=== PATIENT | male | born 1985 | race Caucasian/White ===

== ENCOUNTER 2020-12-12 14:51 | Emergency (ER) | payer BC ==
[~2020-12-12] VITALS: Ht 182.9 cm; Wt 109.1 kg
[2020-12-12 15:10] LABS: MEAN CELL VOLUME 88 fl (80.0-100.0); MEAN CORPUSCULAR HEMOGLOBIN 30 pg (27.0-31.0); MEAN CORPUSCULAR HGB CONC 34 g/dl (33.0-37.0); PLATELET COUNT 159 K/mm3 (130-400); RED BLOOD COUNT 5.95 M/mm3 (4.20-5.60); REDCELL DISTRIBUTION WIDTH-CV 12.4 % (11.5-14.5)
[2020-12-12 15:11] LABS: HEMATOCRIT 52.5 % (42.0-52.0)
[2020-12-12 15:22] LABS: ALBUMIN 4.9 gm/dL (3.5-5.0); CALCIUM 9.7 mg/dL (8.4-10.2); CREATININE, serum 1.24 (0.66-1.25); POTASSIUM 3.9 mmol/L (3.4-5.0); TOTAL PROTEIN 8.8 gm/dL (6.4-8.2)
[2020-12-12 15:33] LABS: BAND 23 % (0-10); EOSINOPHIL 2 % (0-4); LYMPHOCYTE 11 % (20.0-51.0); NEUTROPHILS 61 % (42.0-75.2); PLATELET ESTIMATE NORMAL (NORMAL)
[2020-12-12 16:24] VITALS: TEMP 99.3
[2020-12-12] MEDS ORDERED: FLAGYL500 MG PO (18:12)
[2020-12-12 18:44] VITALS: BP 152/92; PULSE 89
[2020-12-12 18:51] LABS: CLOSTRIDIUM DIFF A/B NEG; CLOSTRIDIUM DIFF A/B INTERP No C.diff present
== END 2020-12-12 18:44 | disposition home or self-care (01) ==
LOC: COL.ER 14:51
PROVIDERS: Nurse Practitioner Primary Care
DX: K52.9 Noninfective gastroenteritis and colitis, unspecified (principal)
CPT/HCPCS: J7030

== ENCOUNTER 2024-06-10 09:04 | Emergency (ER) | payer BC ==
[~2024-06-10] VITALS: Ht 182.9 cm; Wt 102.3 kg
[~2024-06-10 09:04] MED LIST: FLAGYL500 MG PO
[2024-06-10 09:11] VITALS: BP 151/96; TEMP 98.1
[2024-06-10 10:02] VITALS: PULSE 71
== END 2024-06-10 10:02 | disposition home or self-care (01) ==
LOC: COL.ER 09:04
DX: T18.8XXA Foreign body in other parts of alimentary tract, initial encounter (principal); W44.8XXA Other foreign body entering into or through a natural orifice, initial encounter